=== PATIENT | male | born 1970 | race American Indian/Alaskan Native ===

== ENCOUNTER 2017-08-30 11:50 | Emergency (ER) | payer SELFPAY ==
[2017-08-30 11:59] VITALS: BP 126/85
--- NOTE | 2017-08-30 16:28 | Emergency Department Report ---
ED Extremity Problem HPI - General Chief complaint: Extremity Injury, Lower Stated complaint: FLUID/PAIN IN KNEE Time Seen by Provider: 08/30/17 15:12 Source: patient, family Mode of arrival: Ambulatory Limitations: No Limitations - History of Present Illness Initial comments: Patient reports that he has right knee pain that started this morning with some swelling. He denies any injury. Patient reports that he played sports for a very long time and he denies this is the cause. He reports pain is worse to the back of his knee. Patient reports his diabetic and the sugar in triage is 136. Pain is 10 out of 10 in a can. No kfep-[id number]-[id number] medication taken for pain. Denies any shortness of breath or chest pain. Denies any long distance travel by car or airplane recently. Denies any recent surgery or any history of cancer or current cancer. Denies any fever or chills. Denies any redness or swelling to extremities. Pain is worse with movement better with rest MD Complaint: joint swelling, joint paint -: This morning Location: right, knee History of Same: Yes -: Yes arthralgia, No fever, No associated dyspnea, No associated chest pain Radiation: none Severity scale (0 -10): 10 Quality: aching Consistency: constant Improves with: immobilization, rest Worsens with: weight bearing, walking, exertion Associated Symptoms: arthralgias. denies: chest pain, shortness of breath, fever, myalgias, rash - Related Data Previous Rx's Medication Instructions Recorded Last Taken Type traMADol [Ultram] 50 mg PO Q6HR PRN 5 Days #20 tablet 08/30/17 Unknown Rx Allergies Allergy/AdvReac Type Severity Reaction Status Date / Time No Known Allergies Allergy Unverified 08/30/17 11:58 ED Review of Systems ROS: Stated complaint: FLUID/PAIN IN KNEE Other details as noted in HPI Comment: All other systems reviewed and negative Constitutional: no symptoms reported Eyes: denies: eye pain, eye discharge ENT: denies: throat pain, congestion Respiratory: no symptoms reported Cardiovascular: denies: chest pain, palpitations, dyspnea on exertion, orthopnea , edema, syncope, paroxysmal nocturnal dyspnea Gastrointestinal: denies: abdominal pain, nausea, vomiting, diarrhea, constipation, hematemesis, melena, hematochezia Musculoskeletal: joint swelling, arthralgia. denies: back pain, myalgia Skin: denies: rash Neurological: denies: headache, weakness, numbness, paresthesias, confusion, abnormal gait, vertigo ED Past Medical Hx - Past Medical History Previous Medical History?: Yes Hx Diabetes: Yes - Surgical History Past Surgical History?: No - Family History Family history: hypertension - Social History Smoking Status: Current Every Day Smoker Substance Use Type: None - Medications Home Medications: Home Medications Medication Instructions Recorded Confirmed Last Taken Type traMADol [Ultram] 50 mg PO Q6HR PRN 5 Days #20 tablet 08/30/17 Unknown Rx ED Physical Exam - General Limitations: No Limitations General appearance: alert, in no apparent distress - Head Head exam: Present: atraumatic, normocephalic, normal inspection - Eye Eye exam: Present: normal appearance, PERRL, EOMI. Absent: periorbital swelling , periorbital tenderness Pupils: Present: normal accommodation - ENT ENT exam: Present: normal exam, normal orophraynx, mucous membranes moist - Neck Neck exam: Present: normal inspection, full ROM, other (no C-spine tenderness). Absent: tenderness, meningismus, lymphadenopathy, thyromegaly - Respiratory Respiratory exam: Present: normal lung sounds bilaterally. Absent: respiratory distress, wheezes, rales, rhonchi, stridor, chest wall tenderness, accessory muscle use, decreased breath sounds, prolonged expiratory - Cardiovascular Cardiovascular Exam: Present: regular rate, normal rhythm, normal heart sounds. Absent: systolic murmur, diastolic murmur - GI/Abdominal GI/Abdominal exam: Present: soft, normal bowel sounds. Absent: distended, tenderness, guarding, rebound, rigid, organomegaly, mass, bruit, pulsatile mass , hernia - Extremities Exam Extremities exam: Present: full ROM, tenderness (tended to palpate to posterior knee), normal capillary refill, joint swelling (mild swelling in her lateral anterior right knee). Absent: normal inspection, pedal edema, calf tenderness, other - Expanded Lower Extremity Exam Right Hip exam: Present: normal inspection, full ROM, pelvic stability. Absent: tenderness, swelling, abrasion, laceration, ecchymosis, deformity, crepidus, dislocation, erythema, external rotation, internal rotation, shortening Upper Leg exam: Present: normal inspection, full ROM. Absent: tenderness, swelling, abrasion, laceration, ecchymosis, deformity, crepidus, dislocation, erythema Knee exam: Present: full ROM (patient with full range of motion to right knee but he reports painful with flexion and minimal pain with extension), tenderness (posterior knee), swelling (mild swelling to right lateral in any), full knee extension. Absent: normal inspection, abrasion, laceration, ecchymosis, deformity, crepidus, dislocation, erythema, effusion, pain w/ pronation/supination, posterior draw sign, pain/laxity with valgus, pain/laxity with varus Lower Leg exam: Present: normal inspection, full ROM. Absent: tenderness, swelling, abrasion, laceration, ecchymosis, deformity, crepidus, dislocation, erythema, palpable cord, Xiomy's sign Ankle exam: Present: normal inspection, full ROM. Absent: tenderness, swelling , abrasion, laceration, ecchymosis, deformity, crepidus, dislocation, erythema Foot/Toe exam: Present: normal inspection, full ROM. Absent: tenderness, swelling, abrasion, laceration, ecchymosis, deformity, crepidus, dislocation, erythema, amputation, puncture wound, foreign body, calcaneal tenderness, tenderness at base of 5th metatarsal, nail avulsion, subungual hematoma Neuro vascular tendon exam: Present: no vascular compromise. Absent: pulse deficit, abnormal cap refill, motor deficit, sensory deficit, tendon deficit, extremity cold to touch, pallor, abnormal 2-point discrimination, decreased fine /light touch, foot drop, peroneal nerve deficit, significant pain with passive ROM of distal joint Gait: Positive: observed and limited by pain - Back Exam Back exam: Present: normal inspection, full ROM, other (patient ambulates with limp but he is able to ambulate.). Absent: tenderness, CVA tenderness (R), CVA tenderness (L), muscle spasm, paraspinal tenderness, vertebral tenderness, rash noted - Neurological Exam Neurological exam: Present: alert, oriented X3, normal gait, reflexes normal. Absent: motor sensory deficit - Psychiatric Psychiatric exam: Present: normal affect, normal mood - Skin Skin exam: Present: warm, dry, intact, normal color. Absent: rash ED Course Vital Signs 08/30/17 08/30/17 11:53 16:44 Temperature 98.6 F Pulse Rate 93 H 84 Respiratory 18 Rate Blood Pressure 126/85 O2 Sat by Pulse 95 Oximetry - Reevaluation(s) Reevaluation #1: 08/30/17 16:41 Benji wrap applied to the right knee and patient given Ultram 50 mg when necessary emergency room for pain. - Orthopedic Splinting/Casting Injury #1 Side: right Lower Extremity Injury Location: knee Lower Extremity Immobilizer: Benji wrap ED Medical Decision Making - Radiology Data Radiology results: report reviewed VASCULAR LAB.PRELIMINARY REPORT.RLE VENOUS DUPLEX DONE. NO EVIDENCE OF DVT/SVT IN VESSELS VISUALIZED.SOFT TISSUE CHANGES SEEN IN THE RT.KNEE. - Medical Decision Making ED course: In here complaining of right knee pain upon wakening this morning. He reports some swelling to his knee. He's had similar incident along time ago and said he plays a lot of sports for a long time when he was younger. Physical findings for tenderness to palpate to posterior knee popliteal space and mild swelling in her lateral right knee. Doppler ultrasound of right lower extremity ruled out DVT or SVT. There was mention of soft tissue swelling. I discussed patient that there are no need for me to do x-ray because he is able to flex and extend his knee and there is minimal swelling and his ultrasound of right lower extremity revealed no DVT or SVT. I discussed that he will need to follow up with orthopedic doctor for further evaluation and treatment of right knee pain. I discussed with him that ultrasound only shows bilateral bone any might have ligament injury. Patient discharged home with his family with prescription for Ultram and follow up with Dr. Deleon in 2 days. Patient given Ultram 50 mg when necessary emergency room for pain which helped his pain. Vital signs are stable he's afebrile. Critical care attestation.: If time is entered above; I have spent that time in minutes in the direct care of this critically ill patient, excluding procedure time. ED Disposition Clinical Impression: Arthralgia of right knee, Localized soft tissue swelling Disposition: DC-01 TO HOME OR SELFCARE Is pt being admited?: No Does the pt Need Aspirin: No Condition: Stable Instructions: Arthralgia (ED), Knee Pain (ED), Knee Exercises (GEN), RICE Therapy (ED) Additional Instructions: Your ultrasound results came back with negative results for blood clots Please take medication as prescribed for pain but please do not drive or operate heavy machinery while taking this medication Rest affected area 72 hours and keep Benji wrap on to site. scheduled an appointment to see Dr. Deleon who is orthopedic doctor in 2 days. If you develop any worsening knee pain, fever and redness in the please return to the emergency room [facility] Prescriptions: traMADol [Ultram] 50 mg PO Q6HR PRN 5 Days #20 tablet PRN Reason: Pain Referrals: [facility] [Outside] - 09/01/17 GENI DELEON MD [Staff Physician] - 09/01/17 Forms: Work/School Release Form(ED), Accompanied Note
[2017-08-30] MEDS ORDERED: ULTRAM PO ONE (16:34)
--- NOTE | 2017-08-31 10:53 | Vascular Lab Report ---
Right Lower Extremity Venous Duplex Study: Reason for Exam: Pain and swelling of the right lower extremity. Comments on the Right: All veins visualized are freely compressible without evidence of internal echogenicity. Flow is spontaneous and phasic throughout. No evidence of acute or chronic thrombus is seen in any of the vessels visualized. There are soft tissue change in the right knee area most compatible with an effusion or Emerson's cyst. Comments on the Left: A limited duplex study was done of the proximal veins of the left lower extremity. All veins visualized are freely compressible without evidence of internal echogenicity. Flow is spontaneous and phasic throughout. No evidence of acute or chronic thrombus is seen in any of the vessels visualized. Impression: No evidence of acute or chronic deep venous thrombosis in the right lower extremity.
== END 2017-08-30 17:06 | disposition home or self-care (01) ==
LOC: ED 11:50
DX: M25.561 Pain in right knee (principal); F17.200 Nicotine dependence, unspecified, uncomplicated; E11.9 Type 2 diabetes mellitus without complications
CPT/HCPCS: 99283

== ENCOUNTER 2017-12-21 11:11 | Emergency (ER) | payer SELFPAY ==
[2017-12-21] MEDS ORDERED: NITROSTAT SL ONE (11:49)
[2017-12-21] MEDS ORDERED: ASPIRIN PO ONE (11:49)
[2017-12-21] MEDS ORDERED: ZOFRAN ONE (11:53)
--- NOTE | 2017-12-21 11:53 | Emergency Department Report ---
Blank Doc - Documentation Documentation: Patient is a 47-year-old [place] male with a past medical history of diabetes and hypertension who is coming planning of chest pain. Patient states this is a burning sensation with radiation and numbness to the left upper extremity. Patient states is mild shortness of breath with there is no pleuritic component. Patient states he just ran arrive to work when this began. Patient states it was initially 8 out of 10 and is now 6 out of 10 in severity. Patient has not had a cardiac workup in the past. EKG shows inverted T waves in the lateral leads Patient will be moved to the main area of the ED for complete cardiac workup.
[2017-12-21] MEDS ORDERED: ZOFRAN IV ONE ×2 (12:15→13:10)
[2017-12-21 12:37] LABS: Basophils # (Auto) 0.1 K/mm3 (0.0-0.1); Basophils % (Auto) 0.8 % (0.0-1.8); Eosinophils # (Auto) 0.1 K/mm3 (0.0-0.4); Eosinophils % (Auto) 0.8 % (0.0-4.3); Hematocrit 42.6 % (35.5-45.6); Lymphocytes # (Auto) 2.2 K/mm3 (1.2-5.4); Lymphocytes % (Auto) 28.3 % (13.4-35.0); Mean Corpuscular HGB Conc 33 % (32-34); Mean Corpuscular Hemoglobin 30 pg (28-32); Mean Corpuscular Volume 91 fl (84-94); Monocytes # (Auto) 0.3 K/mm3 (0.0-0.8); Monocytes % (Auto) 4.2 % (0.0-7.3); Platelet Count 188 K/mm3 (140-440); Red Blood Count 4.67 M/mm3 (3.65-5.03); Red Cell Distribution Width 13.9 % (13.2-15.2)
[2017-12-21 12:47] LABS: INR 0.84 (0.87-1.13)
[2017-12-21 12:48] LABS: Partial Thromboplastin Time 29.2 Sec. (24.2-36.6)
--- NOTE | 2017-12-21 12:53 | XRay Report ---
Chest 2 views: History: Chest pain. Findings: Normal cardiomediastinal silhouette. Trachea is midline. No consolidation, pneumothorax or pleural effusion. Impression: No acute cardiopulmonary findings.
[2017-12-21 12:57] LABS: Alanine Aminotransferase 31 units/L (7-56); Albumin 4.1 g/dL (3.9-5); BUN/Creatinine Ratio 32; Blood Urea Nitrogen 19 mg/dL (9-20); Calcium 8.8 mg/dL (8.4-10.2); Hemolysis Index 6; Lipase 38 units/L (13-60)
[2017-12-21] MEDS ORDERED: MORPHINE IV ONE (13:10)
--- NOTE | 2017-12-21 13:15 | Emergency Department Report ---
HPI - General Chief Complaint: Chest Pain Time Seen by Provider: 12/21/17 11:36 - HPI HPI: Room 5 The patient is a 47-year-old male presented with a chief complaint of chest pain. The patient states this morning 10:00 while he was cleaning the bathroom he developed a constant burning/tightness to the substernal chest region in addition to numbness of the left upper extremity. Patient states she had an episode of vomiting. Patient denies shortness of breath or diaphoresis. The patient admits to occasional cocaine use and states he last used 2 days ago. The patient currently gets this pain is score of 6/10. Patient states he never had a stress test or cardiac catheterization Location: Chest, see above Duration: Constant since 10:00 Quality: Tightness/Burning Severity: 6/10 Modifying factors: [see above] Context: [see above] Mode of transportation: [not driving] ED Past Medical Hx - Past Medical History Hx Diabetes: Yes Additional medical history: "Irregular heartbeat" - Surgical History Past Surgical History?: No Additional Surgical History: Sternal repair - Family History Family history: no significant - Social History Smoking Status: Current Every Day Smoker (1 pack per day) Substance Use Type: Alcohol (occasional), Cocaine (last used 2 days ago) - Medications Home Medications: Home Medications Medication Instructions Recorded Confirmed Last Taken Type traMADol [Ultram] 50 mg PO Q6HR PRN 5 Days #20 tablet 08/30/17 Unknown Rx ED Review of Systems ROS: Stated complaint: C/P Other details as noted in HPI Constitutional: denies: diaphoresis Respiratory: denies: shortness of breath Cardiovascular: chest pain Gastrointestinal: nausea, vomiting Neurological: numbness Physical Exam - Physical Exam Vital Signs: Vital Signs 12/21/17 12/21/17 11:17 12:16 Temperature 98.6 F Pulse Rate 85 85 Respiratory 16 Rate Blood Pressure 137/95 137/95 O2 Sat by Pulse 97 Oximetry Physical Exam: GENERAL: The patient is well-developed well-nourished male lying on stretcher not appear to be in acute distress. [] HEENT: Normocephalic. Atraumatic. Extraocular motions are intact. Patient has moist mucous membranes. NECK: Supple. Trachea midline CHEST/LUNGS: Clear to auscultation. There is no respiratory distress noted. HEART/CARDIOVASCULAR: Regular. There is no tachycardia. There is no gallop rub or murmur. ABDOMEN: Abdomen is soft, nontender. Patient has normal bowel sounds. There is no abdominal distention. SKIN: There is no rash. There is no edema. There is no diaphoresis. NEURO: The patient is awake, alert, and oriented. The patient is cooperative. The patient has normal speech MUSCULOSKELETAL: There is no evidence of acute injury. ED Course Vital Signs 12/21/17 12/21/17 11:17 12:16 Temperature 98.6 F Pulse Rate 85 85 Respiratory 16 Rate Blood Pressure 137/95 137/95 O2 Sat by Pulse 97 Oximetry ED Medical Decision Making - Lab Data Result diagrams: 12/21/17 12:17 12/21/17 12:17 Laboratory Tests 12/21/17 12/21/17 12/21/17 12:17 12:17 12:17 WBC 7.6 RBC 4.67 Hgb 14.0 Hct 42.6 MCV 91 MCH 30 MCHC 33 RDW 13.9 Plt Count 188 Lymph % (Auto) 28.3 [place] % (Auto) 4.2 Eos % (Auto) 0.8 Baso % (Auto) 0.8 Lymph # 2.2 [place] # 0.3 Eos # 0.1 Baso # 0.1 Seg Neutrophils % 65.9 Seg Neutrophils # 5.0 PT 11.9 L INR 0.84 L APTT 29.2 Sodium 138 Potassium 3.9 Chloride 100.5 Carbon Dioxide 23 Anion Gap 18 BUN 19 Creatinine 0.6 L Estimated GFR > 60 BUN/Creatinine Ratio 32 Glucose 251 H Calcium 8.8 Total Bilirubin 0.90 AST 19 ALT 31 Alkaline Phosphatase 57 Troponin T < 0.010 Total Protein 6.8 Albumin 4.1 Albumin/Globulin Ratio 1.5 Lipase 38 - EKG Data -: EKG Interpreted by Me EKG shows normal: sinus rhythm Rate: normal - EKG Data When compared to previous EKG there are: previous EKG unavailable Interpretation: nonspecific ST-T wave andres (T-wave inversion in leads 2, 3, aVF, V4, V5, V6) - Radiology Data Radiology results: image reviewed (chest x-ray) interpreted by me: Chest x-ray- no focal infiltrates, no pneumothorax - Differential Diagnosis ACS, GERD, pericarditis Critical care attestation.: If time is entered above; I have spent that time in minutes in the direct care of this critically ill patient, excluding procedure time. ED Disposition Clinical Impression: Chest pain, T wave inversion in EKG Disposition: DC-09 OP ADMIT IP TO THIS HOSP Is pt being admited?: Yes Does the pt Need Aspirin: Yes Condition: Fair Instructions: Chest Pain (ED) Referrals: PRIMARY CARE,MD [Primary Care Provider] - 3-5 Days Time of Disposition: 13:17 (hospitalist notified (Dr Hatch))
--- NOTE | 2017-12-21 13:32 | History and Physical Report ---
Medications and Allergies Allergies Allergy/AdvReac Type Severity Reaction Status Date / Time No Known Allergies Allergy Verified 12/21/17 11:55 Home Medications Medication Instructions Recorded Confirmed Last Taken Type Insulin Aspart [NovoLOG Flexpen] 10 units SQ AC 12/21/17 12/21/17 1 Week Ago History ~12/14/17 Metformin HCl [Glucophage] 1,000 mg PO BID 12/21/17 12/21/17 1 Week Ago History ~12/14/17 glyBURIDE [Glyburide] 5 mg PO DAILY 12/21/17 12/21/17 1 Week Ago History ~12/14/17 Exam - Constitutional Vitals: Temp Pulse Resp BP Pulse Ox 98.6 F 85 16 137/95 97 12/21/17 11:17 12/21/17 12:16 12/21/17 11:17 12/21/17 12:16 12/21/17 11:17 Results - Labs CBC & Chem 7: 12/21/17 12:17 12/21/17 12:17 Labs: Abnormal lab results 12/21/17 12/21/17 Range/Units 12:17 12:17 PT 11.9 L (12.2-14.9) Sec. INR 0.84 L (0.87-1.13) Creatinine 0.6 L (0.8-1.5) mg/dL Glucose 251 H (75-100) mg/dL
[2017-12-21 14:13] VITALS: BP 120/83
[2017-12-21] MEDS ORDERED: NON-FORMULARY (Insulin Aspart [Novolog Flexpen] 10 UNITS) SQ SCH (16:30)
[2017-12-21] MEDS ORDERED: NON-FORMULARY (Metformin Hcl [Glucophage] 1,000 MG) PO SCH (22:00)
[2017-12-22] MEDS ORDERED: DIABETA PO SCH (10:00)
== END 2017-12-21 16:16 | disposition admitted as inpatient to this hospital (09) ==
LOC: ED 11:11
DX: R07.89 Other chest pain (principal); F17.200 Nicotine dependence, unspecified, uncomplicated; F14.10 Cocaine abuse, uncomplicated; E11.9 Type 2 diabetes mellitus without complications
CPT/HCPCS: 36415; 71046; 80053; 82962; 83690; 84484; 85025; 85379; 85610; 85730; 93005; 93010; 96374; 96375; 96376; 99285; J2270; J2405

== ENCOUNTER 2018-03-06 07:02 | Emergency (ER) | payer OTHER ==
[2018-03-06] MEDS ORDERED: ASPIRIN PO ONE (07:10)
[2018-03-06 08:01] LABS: Basophils # (Auto) 0.1 K/mm3 (0.0-0.1); Basophils % (Auto) 0.9 % (0.0-1.8); Eosinophils % (Auto) 0.2 % (0.0-4.3); Hematocrit 44.3 % (35.5-45.6); Hemoglobin 14.7 gm/dl (11.8-15.2); Lymphocytes # (Auto) 3.6 K/mm3 (1.2-5.4); Lymphocytes % (Auto) 35.8 % (13.4-35.0); Mean Corpuscular HGB Conc 33 % (32-34); Mean Corpuscular Hemoglobin 31 pg (28-32); Mean Corpuscular Volume 92 fl (84-94); Monocytes # (Auto) 0.8 K/mm3 (0.0-0.8); Platelet Count 166 K/mm3 (140-440); Red Blood Count 4.83 M/mm3 (3.65-5.03); Red Cell Distribution Width 14.2 % (13.2-15.2)
[2018-03-06 09:45] LABS: BUN/Creatinine Ratio 18; Blood Urea Nitrogen 16 mg/dL (9-20); Hemolysis Index 15
[2018-03-06] MEDS ORDERED: ZOFRAN IV ONE (13:38)
[2018-03-06] MEDS ORDERED: TYLENOL PO ONE (13:38)
[2018-03-06] MEDS ORDERED: ATIVAN IV ONE (13:38)
[2018-03-06] MEDS ORDERED: NACL 0.9% 1000 ML 2,000 ML IV ONE (13:38)
[2018-03-06 14:19] LABS: INR 1.23 (0.87-1.13)
--- NOTE | 2018-03-06 14:23 | XRay Report ---
ROUTINE CHEST, TWO VIEWS: HISTORY: chest pain. The trachea, heart, mediastinal contour, lung contrears and bony thorax are unremarkable. IMPRESSION: Unremarkable chest x-ray.
[2018-03-06 14:55] LABS: Bilirubin,Urine NEG (Negative); Blood,Urine NEG (Negative); Color,Urine Yellow (Yellow); Protein,Urine <15 mg/dL mg/dL (Negative)
[2018-03-06 15:07] LABS: Amphetamine Screen,Urine PRESUMPTIVE NEGATIVE; Benzodiazepines Screen,Urine PRESUMPTIVE NEGATIVE; Methadone Screen,Urine PRESUMPTIVE NEGATIVE; Opiate Screen,Urine PRESUMPTIVE NEGATIVE
[2018-03-06 15:21] VITALS: BP 115/84
[2018-03-06 15:21] LABS: Cannabinoid Screen,Urine PRESUMPTIVE POSITIVE; Cocaine Screen,Urine PRESUMPTIVE POSITIVE
--- NOTE | 2018-03-06 15:24 | Emergency Department Report ---
ED General Adult HPI - General Chief complaint: Chest Pain Stated complaint: CHEST PAIN/SOB Time Seen by Provider: 03/06/18 13:30 Source: patient, RN notes reviewed, old records reviewed Mode of arrival: Ambulatory Limitations: No Limitations - History of Present Illness Initial comments: This is a 47-year-old male who is unknown to this provider previously, has a past medical history of cocaine abuse. Patient presents to the ER with a complaint of supraumbilical pain that radiates up to his subxiphoid region for the past 2 days. The pain is described as aching, burning and sharp. He describes 2 episodes of nausea, no active vomiting, a few episodes of nonbloody diarrhea, indicates that his testicles feel "funny", and he denies irritative obstructive urinary symptoms. He reports a recent cocaine binge for the past 72 hours. His epigastric pain has been present for over 2 days. He denies DVT , pulmonary embolus risk factors, reports that he feels quite anxious, and was recently evaluated at this hospital in December for similar complaints, had multiple negative troponins and a negative d-dimer. -: Gradual Location: abdomen Radiation: abdomen, other (subxiphoid) Severity scale (0 -10): 5 Quality: burning, aching Consistency: constant Improves with: none Worsens with: none Associated Symptoms: chest pain, loss of appetite, malaise, nausea/vomiting, shortness of breath, weakness. denies: confusion, cough, diaphoresis, fever/ chills, headaches, rash, seizure, syncope - Related Data Home Medications Medication Instructions Recorded Confirmed Last Taken Insulin Aspart [NovoLOG Flexpen] 10 units SQ AC 12/21/17 03/06/18 1 Week Ago ~12/14/17 Metformin HCl [Glucophage] 1,000 mg PO BID 12/21/17 03/06/18 1 Week Ago ~12/14/17 glyBURIDE [Glyburide] 5 mg PO DAILY 12/21/17 03/06/18 1 Week Ago ~12/14/17 Previous Rx's Medication Instructions Recorded Last Taken Type Acetaminophen [Tylenol Arthritis] 650 mg PO Q6HR PRN #30 tablet.er 03/06/18 Unknown Rx Aspirin [Aspirin BABY CHEW TAB] 81 mg PO QDAY #30 tab.chew 03/06/18 Unknown Rx Famotidine [Pepcid] 20 mg PO QDAY #30 tablet 03/06/18 Unknown Rx Ondansetron [Zofran Odt] 4 mg PO Q8HR PRN #20 tab.rapdis 03/06/18 Unknown Rx Allergies Allergy/AdvReac Type Severity Reaction Status Date / Time No Known Allergies Allergy Verified 03/06/18 07:08 ED Review of Systems ROS: Stated complaint: CHEST PAIN/SOB Other details as noted in HPI Constitutional: malaise Eyes: denies: vision change Respiratory: shortness of breath Cardiovascular: chest pain Gastrointestinal: abdominal pain, diarrhea Genitourinary: denies: urgency, dysuria, testicular pain Musculoskeletal: arthralgia Skin: denies: lesions Neurological: weakness Psychiatric: anxiety ED Past Medical Hx - Past Medical History Hx Diabetes: Yes Additional medical history: "Irregular heartbeat" - Surgical History Additional Surgical History: Sternal repair - Social History Smoking Status: Current Every Day Smoker Substance Use Type: Alcohol, Cocaine - Medications Home Medications: Home Medications Medication Instructions Recorded Confirmed Last Taken Type Insulin Aspart [NovoLOG Flexpen] 10 units SQ AC 12/21/17 03/06/18 1 Week Ago History ~12/14/17 Metformin HCl [Glucophage] 1,000 mg PO BID 12/21/17 03/06/18 1 Week Ago History ~12/14/17 glyBURIDE [Glyburide] 5 mg PO DAILY 12/21/17 03/06/18 1 Week Ago History ~12/14/17 Acetaminophen [Tylenol Arthritis] 650 mg PO Q6HR PRN #30 tablet.er 03/06/18 Unknown Rx Aspirin [Aspirin BABY CHEW TAB] 81 mg PO QDAY #30 tab.chew 03/06/18 Unknown Rx Famotidine [Pepcid] 20 mg PO QDAY #30 tablet 03/06/18 Unknown Rx Ondansetron [Zofran Odt] 4 mg PO Q8HR PRN #20 tab.rapdis 03/06/18 Unknown Rx ED Physical Exam - General Limitations: No Limitations General appearance: alert, in no apparent distress - Head Head exam: Present: atraumatic, normocephalic - Eye Eye exam: Present: normal appearance, EOMI. Absent: nystagmus - ENT ENT exam: Present: normal exam, normal orophraynx, mucous membranes moist, normal external ear exam - Neck Neck exam: Present: normal inspection, full ROM - Respiratory Respiratory exam: Present: normal lung sounds bilaterally. Absent: respiratory distress - Cardiovascular Cardiovascular Exam: Present: normal rhythm, tachycardia, normal heart sounds. Absent: systolic murmur, diastolic murmur, rubs, gallop - GI/Abdominal GI/Abdominal exam: Present: soft, normal bowel sounds. Absent: distended, tenderness, guarding, rebound, rigid, pulsatile mass - Rectal Rectal exam: Present: deferred - exam: Present: normal inspection. Absent: testicular tenderness External exam: Present: normal external exam, other (there is no testicular tenderness. There is normal testicular lie bilaterally. There is normal cremasteric reflex bilaterally.) - Extremities Exam Extremities exam: Present: normal inspection (2+ pulses noted in the bilateral upper, lower extremities. Compartments soft. No long bony tenderness. The pelvis is stable.), full ROM, normal capillary refill, other (there is no palpable cord. There is a negative Homans sign.). Absent: pedal edema, joint swelling, calf tenderness - Back Exam Back exam: Present: normal inspection, full ROM. Absent: tenderness, CVA tenderness (R), paraspinal tenderness, vertebral tenderness - Neurological Exam Neurological exam: Present: alert, oriented X3, CN II-XII intact, normal gait, other (Extraocular movements intact. Tongue midline. No facial droop. Facial sensation intact to light touch in the V1, V2, V3 distribution bilaterally. 5 and 5 strength in 4 extremities.. Sensation is intact to light touch in 4 extremities.). Absent: motor sensory deficit - Psychiatric Psychiatric exam: Present: anxious - Skin Skin exam: Present: warm, dry, intact, normal color. Absent: rash ED Course Vital Signs 03/06/18 03/06/18 03/06/18 07:08 13:55 15:15 Temperature 98.1 F Pulse Rate 120 H 104 H 102 H Respiratory 18 16 16 Rate Blood Pressure 122/90 Blood Pressure 112/86 115/84 [Left] O2 Sat by Pulse 98 96 98 Oximetry - Reevaluation(s) Reevaluation #1: 03/06/18 15:23 Differential diagnosis, including but not limited to: Cocaine abuse, colitis, enteritis, GERD, gastritis, pneumonia, acute coronary syndrome, cocaine washout Assessment and plan: 47-year-old male status post recent cocaine binge with 48 hours of suprapubic abdominal pain that radiates to the epigastric region. Troponin negative 3, EKG unchanged 2 and unchanged from prior EKG from 2018. Recently had a negative d-dimer, and endorses no pulmonary embolus or DVT risk factors. He is treated supportively and symptomatically with IV fluids, nonnarcotic medication and Ativan. On my initial assessment the patient is sleeping comfortably in the stretcher and in no distress. After aforementioned therapy, patient is still sleeping heavily on a stretcher, and in no distress. Patient is low risk by NICOLE score, low risk by heart score, low risk by well's criteria, and based on the objective data is medically suitable to follow up with outpatient cardiology to complete the cardiac risk stratification. He was instructed to discontinue cocaine consumption. Reevaluation #2: 03/06/18 15:[address] a/p with non specific stranding along gerotas fascia. belly soft. ua, lipase within normal limits. patient can follow up with a pmd for this incidental finding ED Medical Decision Making - Lab Data Result diagrams: 03/06/18 07:27 03/06/18 07:20 Vital Signs 03/06/18 03/06/18 03/06/18 07:08 13:55 15:15 Temperature 98.1 F Pulse Rate 120 H 104 H 102 H Respiratory 18 16 16 Rate Blood Pressure 122/90 Blood Pressure 112/86 115/84 [Left] O2 Sat by Pulse 98 96 98 Oximetry Lab Results 03/06/18 03/06/18 03/06/18 Range/Units 07:20 07:27 10:21 WBC 10.2 (4.5-11.0) K/mm3 RBC 4.83 (3.65-5.03) M/mm3 Hgb 14.7 (11.8-15.2) gm/dl Hct 44.3 (35.5-45.6) % MCV 92 (84-94) fl MCH 31 (28-32) pg MCHC 33 (32-34) % RDW 14.2 (13.2-15.2) % Plt Count 166 (140-440) K/mm3 Lymph % (Auto) 35.8 H (13.4-35.0) % [place] % (Auto) 8.0 H (0.0-7.3) % Eos % (Auto) 0.2 (0.0-4.3) % Baso % (Auto) 0.9 (0.0-1.8) % Lymph # 3.6 (1.2-5.4) K/mm3 [place] # 0.8 (0.0-0.8) K/mm3 Eos # 0.0 (0.0-0.4) K/mm3 Baso # 0.1 (0.0-0.1) K/mm3 Seg Neutrophils % 55.1 (40.0-70.0) % Seg Neutrophils # 5.6 (1.8-7.7) K/mm3 PT (12.2-14.9) Sec. INR (0.87-1.13) Sodium 135 L (137-145) mmol/L Potassium 4.5 (3.6-5.0) mmol/L Chloride 98.7 (98-107) mmol/L Carbon Dioxide 20 L (22-30) mmol/L Anion Gap 21 mmol/L BUN 16 (9-20) mg/dL Creatinine 0.9 (0.8-1.5) mg/dL Estimated GFR > 60 ml/min BUN/Creatinine Ratio 18 % Glucose 124 H (75-100) mg/dL Calcium 9.0 (8.4-10.2) mg/dL Total Creatine Kinase (55-170) units/L Troponin T 0.012 0.017 (0.00-0.029) ng/mL Lipase (13-60) units/L Urine Color (Yellow) Urine Turbidity (Clear) Urine pH (5.0-7.0) Ur Specific [place] (1.003-1.030) Urine Protein (Negative) mg/dL Urine Glucose (UA) (Negative) mg/dL Urine Ketones (Negative) mg/dL Urine Blood (Negative) Urine Nitrite (Negative) Urine Bilirubin (Negative) Urine Urobilinogen (<2.0) mg/dL Ur Leukocyte Esterase (Negative) Urine WBC (Auto) (0.0-6.0) /HPF Urine RBC (Auto) (0.0-6.0) /HPF U Epithel Cells (Auto) (0-13.0) /HPF Salicylates (2.8-20.0) mg/dL Urine Opiates Screen Urine Methadone Screen Acetaminophen (10.0-30.0) ug/mL Ur Barbiturates Screen Ur Phencyclidine Scrn Ur Amphetamines Screen U Benzodiazepines Scrn Urine Cocaine Screen U Marijuana (THC) Screen 03/06/18 03/06/18 03/06/18 Range/Units 13:47 13:52 13:52 WBC (4.5-11.0) K/mm3 RBC (3.65-5.03) M/mm3 Hgb (11.8-15.2) gm/dl Hct (35.5-45.6) % MCV (84-94) fl MCH (28-32) pg MCHC (32-34) % RDW (13.2-15.2) % Plt Count (140-440) K/mm3 Lymph % (Auto) (13.4-35.0) % [place] % (Auto) (0.0-7.3) % Eos % (Auto) (0.0-4.3) % Baso % (Auto) (0.0-1.8) % Lymph # (1.2-5.4) K/mm3 [place] # (0.0-0.8) K/mm3 Eos # (0.0-0.4) K/mm3 Baso # (0.0-0.1) K/mm3 Seg Neutrophils % (40.0-70.0) % Seg Neutrophils # (1.8-7.7) K/mm3 PT 16.2 H (12.2-14.9) Sec. INR 1.23 H (0.87-1.13) Sodium (137-145) mmol/L Potassium (3.6-5.0) mmol/L Chloride (98-107) mmol/L Carbon Dioxide (22-30) mmol/L Anion Gap mmol/L BUN (9-20) mg/dL Creatinine (0.8-1.5) mg/dL Estimated GFR ml/min BUN/Creatinine Ratio % Glucose (75-100) mg/dL Calcium (8.4-10.2) mg/dL Total Creatine Kinase 311 H (55-170) units/L Troponin T < 0.010 (0.00-0.029) ng/mL Lipase (13-60) units/L Urine Color (Yellow) Urine Turbidity (Clear) Urine pH (5.0-7.0) Ur Specific [place] (1.003-1.030) Urine Protein (Negative) mg/dL Urine Glucose (UA) (Negative) mg/dL Urine Ketones (Negative) mg/dL Urine Blood (Negative) Urine Nitrite (Negative) Urine Bilirubin (Negative) Urine Urobilinogen (<2.0) mg/dL Ur Leukocyte Esterase (Negative) Urine WBC (Auto) (0.0-6.0) /HPF Urine RBC (Auto) (0.0-6.0) /HPF U Epithel Cells (Auto) (0-13.0) /HPF Salicylates (2.8-20.0) mg/dL Urine Opiates Screen Urine Methadone Screen Acetaminophen (10.0-30.0) ug/mL Ur Barbiturates Screen Ur Phencyclidine Scrn Ur Amphetamines Screen U Benzodiazepines Scrn Urine Cocaine Screen U Marijuana (THC) Screen 03/06/18 03/06/18 03/06/18 Range/Units 13:52 13:52 13:52 WBC (4.5-11.0) K/mm3 RBC (3.65-5.03) M/mm3 Hgb (11.8-15.2) gm/dl Hct (35.5-45.6) % MCV (84-94) fl MCH (28-32) pg MCHC (32-34) % RDW (13.2-15.2) % Plt Count (140-440) K/mm3 Lymph % (Auto) (13.4-35.0) % [place] % (Auto) (0.0-7.3) % Eos % (Auto) (0.0-4.3) % Baso % (Auto) (0.0-1.8) % Lymph # (1.2-5.4) K/mm3 [place] # (0.0-0.8) K/mm3 Eos # (0.0-0.4) K/mm3 Baso # (0.0-0.1) K/mm3 Seg Neutrophils % (40.0-70.0) % Seg Neutrophils # (1.8-7.7) K/mm3 PT (12.2-14.9) Sec. INR (0.87-1.13) Sodium (137-145) mmol/L Potassium (3.6-5.0) mmol/L Chloride (98-107) mmol/L Carbon Dioxide (22-30) mmol/L Anion Gap mmol/L BUN (9-20) mg/dL Creatinine (0.8-1.5) mg/dL Estimated GFR ml/min BUN/Creatinine Ratio % Glucose (75-100) mg/dL Calcium (8.4-10.2) mg/dL Total Creatine Kinase (55-170) units/L Troponin T (0.00-0.029) ng/mL Lipase 22 (13-60) units/L Urine Color (Yellow) Urine Turbidity (Clear) Urine pH (5.0-7.0) Ur Specific [place] (1.003-1.030) Urine Protein (Negative) mg/dL Urine Glucose (UA) (Negative) mg/dL Urine Ketones (Negative) mg/dL Urine Blood (Negative) Urine Nitrite (Negative) Urine Bilirubin (Negative) Urine Urobilinogen (<2.0) mg/dL Ur Leukocyte Esterase (Negative) Urine WBC (Auto) (0.0-6.0) /HPF Urine RBC (Auto) (0.0-6.0) /HPF U Epithel Cells (Auto) (0-13.0) /HPF Salicylates < 0.3 L (2.8-20.0) mg/dL Urine Opiates Screen Urine Methadone Screen Acetaminophen < 5.0 L (10.0-30.0) ug/mL Ur Barbiturates Screen Ur Phencyclidine Scrn Ur Amphetamines Screen U Benzodiazepines Scrn Urine Cocaine Screen U Marijuana (THC) Screen 03/06/18 03/06/18 Range/Units 14:19 14:19 WBC (4.5-11.0) K/mm3 RBC (3.65-5.03) M/mm3 Hgb (11.8-15.2) gm/dl Hct (35.5-45.6) % MCV (84-94) fl MCH (28-32) pg MCHC (32-34) % RDW (13.2-15.2) % Plt Count (140-440) K/mm3 Lymph % (Auto) (13.4-35.0) % [place] % (Auto) (0.0-7.3) % Eos % (Auto) (0.0-4.3) % Baso % (Auto) (0.0-1.8) % Lymph # (1.2-5.4) K/mm3 [place] # (0.0-0.8) K/mm3 Eos # (0.0-0.4) K/mm3 Baso # (0.0-0.1) K/mm3 Seg Neutrophils % (40.0-70.0) % Seg Neutrophils # (1.8-7.7) K/mm3 PT (12.2-14.9) Sec. INR (0.87-1.13) Sodium (137-145) mmol/L Potassium (3.6-5.0) mmol/L Chloride (98-107) mmol/L Carbon Dioxide (22-30) mmol/L Anion Gap mmol/L BUN (9-20) mg/dL Creatinine (0.8-1.5) mg/dL Estimated GFR ml/min BUN/Creatinine Ratio % Glucose (75-100) mg/dL Calcium (8.4-10.2) mg/dL Total Creatine Kinase (55-170) units/L Troponin T (0.00-0.029) ng/mL Lipase (13-60) units/L Urine Color Yellow (Yellow) Urine Turbidity Clear (Clear) Urine pH 6.0 (5.0-7.0) Ur Specific [place] 1.010 (1.003-1.030) Urine Protein <15 mg/dl (Negative) mg/dL Urine Glucose (UA) Neg (Negative) mg/dL Urine Ketones Neg (Negative) mg/dL Urine Blood Neg (Negative) Urine Nitrite Neg (Negative) Urine Bilirubin Neg (Negative) Urine Urobilinogen 4.0 (<2.0) mg/dL Ur Leukocyte Esterase Tr (Negative) Urine WBC (Auto) 4.0 (0.0-6.0) /HPF Urine RBC (Auto) 2.0 (0.0-6.0) /HPF U Epithel Cells (Auto) < 1.0 (0-13.0) /HPF Salicylates (2.8-20.0) mg/dL Urine Opiates Screen Presumptive negative Urine Methadone Screen Presumptive negative Acetaminophen (10.0-30.0) ug/mL Ur Barbiturates Screen Presumptive negative Ur Phencyclidine Scrn Presumptive negative Ur Amphetamines Screen Presumptive negative U Benzodiazepines Scrn Presumptive negative Urine Cocaine Screen Presumptive positive U Marijuana (THC) Screen Presumptive positive - EKG Data -: EKG Interpreted by Me - EKG Data When compared to previous EKG there are: no significant change Interpretation: unchanged when compared t 03/06/18 15:25 EKG #1 shows sinus tachycardia, left axis deviation, left anterior fascicular block, atrial enlargement, QTC prolonged, high left ventricular voltage, not a STEMI EKG #2 is unchanged. Both EKGs appeared to be unchanged from prior EKG from 12/21/2017. - Radiology Data Radiology results: report reviewed, image reviewed X-ray of the chest is negative for acute disease Critical care attestation.: If time is entered above; I have spent that time in minutes in the direct care of this critically ill patient, excluding procedure time. ED Disposition Clinical Impression: Cocaine dependence, Epigastric pain Disposition: TO HOME OR SELFCARE Is pt being admited?: No Does the pt Need Aspirin: No Condition: Good Instructions: Chest Pain (ED), Cocaine Abuse (ED) Additional Instructions: Discontinue consumption of tobacco, cocaine products. These substances are not healthy for the patient. Take the pain medication, nausea medication as needed/ directed, take the aspirin as directed, and please follow up with the primary care doctor or ripshear operator within the next 3-5 days. Return to the ER right away with new pain, worsening pain, migration of pain, fevers, chills, lethargy , irritability, projectile vomiting, change in mental status, confusion, inability to tolerate liquid feeds. ct scan showed non specific inflammatory findings, none of which require emergency surgery or antibiotics, but should be follow up by a pmd within the recommended time frame. Prescriptions: Acetaminophen [Tylenol Arthritis] 650 mg PO Q6HR PRN #30 tablet.er PRN Reason: Pain Aspirin [Aspirin BABY CHEW TAB] 81 mg PO QDAY #30 tab.chew Famotidine [Pepcid] 20 mg PO QDAY #30 tablet Ondansetron [Zofran Odt] 4 mg PO Q8HR PRN #20 tab.rapdis PRN Reason: Nausea Referrals: PRIMARY CARE,MD [Primary Care Provider] - 3-5 Days [facility] [Provider Group] - 3-5 Days [facility] [Provider Group] - 3-5 Days
--- NOTE | 2018-03-06 15:45 | Cat Scan Report ---
FINAL REPORT EXAM: CT ABDOMEN PELVIS WO CON HISTORY: abd pain TECHNIQUE: Standard unenhanced CT of the abdomen and pelvis. Coronal and sagittal reconstruction was also performed. PRIORS: None. FINDINGS: Within the abdomen, the liver, spleen, pancreas, gallbladder, adrenal glands, and kidneys are unremarkable. There is nonspecific symmetrical stranding bilaterally along Gerota's fascia of uncertain clinical significance. [place] lymph nodes in the periaortic region are noted measuring up to 8.5 mm. No evidence for pelvic lymphadenopathy is seen. The bowel loops have normal caliber. No soft tissue mass, fluid collection, or free air is seen within the abdomen or pelvis. The appendix is normal. Within the pelvis, the bladder is not optimally distended and demonstrates wall prominence, probably due to the lack of distension. The prostate is mildly enlarged. No evidence for mass or lymphadenopathy is seen in the pelvis. Images through the upper abdomen include the lung bases which demonstrates bilateral free-flowing low-density pleural effusions, moderate on the right and small on the left. Bony structures show degenerative disc narrowing through the lumbar spine, most marked at L5-S1. Spurring anteriorly from T12 through L3 is noted. IMPRESSION: 1. Nonspecific symmetrical stranding along Gerota's fascia bilaterally. Clinical significance is uncertain. Common etiologies are pancreatitis and pyelonephritis. An unlikely etiology is retroperitoneal fibrosis 2. Bilateral pleural effusions, moderate on the right and small on the left 3. Mild enlargement of the prostate gland.
== END 2018-03-06 16:07 | disposition home or self-care (01) ==
LOC: ED 07:02
DX: R10.13 Epigastric pain (principal); F14.20 Cocaine dependence, uncomplicated; F17.200 Nicotine dependence, unspecified, uncomplicated
CPT/HCPCS: 36415; 71046; 74176; 80048; 80307; 81001; 82550; 83690; 84484; 85025; 85610; 93005; 93010; 96374; 96375; 99285; G0480; J2060; J2405; J7030; 80320

== ENCOUNTER 2018-12-20 08:02 | Emergency (ER) | payer SELFPAY ==
[2018-12-20] MEDS ORDERED: LASIX IV ONE (08:31)
--- NOTE | 2018-12-20 08:34 | Emergency Department Report ---
ED Shortness of Breath HPI - General Chief Complaint: Dyspnea/Respdistress Stated Complaint: SOB Time Seen by Provider: 12/20/18 08:31 Source: patient, EMS Mode of arrival: Ambulatory Limitations: No Limitations - History of Present Illness Initial Comments: Condition is a pleasant 48-year-old male who comes to the ER with a one-day history of shortness of breath. He states that he had his appointment yesterday in the [facility], this was a follow-up appointment for his history of congestive heart failure. He was not having any problems when he went to this appointment. However, he went home and reports that his family called and he a te too much including salt last night and has been short of breath today. He also reports that he is on Lasix 40 mg twice a day on an as-needed basis for an increase in his weight. However, he forgot to get his Lasix filled yesterday so he has none to take. Patient does have his paperwork with him from [place] as well as a bag of his home medications. Patient's not complaining of chest pain. He is diabetic and his blood sugar slightly elevated. He reports that he is out of no other medications and is taking everything as instructed. He is also on Coumadin therapy for what he reports his blood clots around his heart when he was diagnosed with his heart failure. Reviewed the EMR at one time he told us he had an irregular heart rate so I'm not sure if the Coumadin is for atrial fib or if he's had a history of PE. Patient is ambulatory with an O2 sat of 99% on room air but appears dyspneic on exam. He denies chest pain. His legs are not swollen. He does have JVD on exam. Home medications include metoprolol XL 200 mg every morning, Coumadin, metformin, spironolactone, and the when necessary Lasix. Patient reports a past medical history of heart failure due to polysubstance a buse. He states that he has not drank, smoke or done any drugs in 9 months. He also has a history of hypertension and diabetes. He has a significant family history for coronary disease. [facility] care is [facility] MD Complaint: shortness of breath -: Gradual Severity: moderate Consistency: constant Improves With: medication Known History Of: congestive heart failure, diabetes Treatments Prior to Arrival: none - Related Data Home Oxygen Therapy: No Home Medications Medication Instructions Recorded Confirmed Last Taken Insulin Aspart [NovoLOG Flexpen] 10 units SQ AC 12/21/17 03/06/18 1 Week Ago ~12/14/17 Metformin HCl [Glucophage] 1,000 mg PO BID 12/21/17 03/06/18 1 Week Ago ~12/14/17 glyBURIDE [Glyburide] 5 mg PO DAILY 12/21/17 03/06/18 1 Week Ago ~12/14/17 Previous Rx's Medication Instructions Recorded Last Taken Type Aspirin [Aspirin BABY CHEW TAB] 81 mg PO QDAY #30 tab.chew 03/06/18 Unknown Rx Famotidine [Pepcid] 20 mg PO QDAY #30 tablet 03/06/18 Unknown Rx Furosemide [Lasix TAB] 40 mg PO BID PRN #60 tablet 12/20/18 Unknown Rx Allergies Allergy/AdvReac Type Severity Reaction Status Date / Time No Known Allergies Allergy Verified 12/20/18 08:03 ED Review of Systems ROS: Stated complaint: SOB Other details as noted in HPI Comment: All other systems reviewed and negative ED Past Medical Hx - Past Medical History Hx Congestive Heart Failure: Yes Hx Diabetes: Yes Additional medical history: "Irregular heartbeat", HTN, CHF FROM DRUG ABUSE, COUMADIN THERAPY FOR "CLOTS AROUND HEART", DM. FAMILY HX CAD. NO DRUGS CIG OR ETOH FOR 9MONTHS - Surgical History Additional Surgical History: Sternal repair - Family History Family history: CAD/CA - Social History Smoking Status: Former Smoker Substance Use Type: Other (CLEAN FOR 9 M) - Medications Home Medications: Home Medications Medication Instructions Recorded Confirmed Last Taken Type Insulin Aspart [NovoLOG Flexpen] 10 units SQ AC 12/21/17 03/06/18 1 Week Ago History ~12/14/17 Metformin HCl [Glucophage] 1,000 mg PO BID 12/21/17 03/06/18 1 Week Ago History ~12/14/17 glyBURIDE [Glyburide] 5 mg PO DAILY 12/21/17 03/06/18 1 Week Ago History ~12/14/17 Aspirin [Aspirin BABY CHEW TAB] 81 mg PO QDAY #30 tab.chew 03/06/18 Unknown Rx Famotidine [Pepcid] 20 mg PO QDAY #30 tablet 03/06/18 Unknown Rx Furosemide [Lasix TAB] 40 mg PO BID PRN #60 tablet 12/20/18 Unknown Rx ED Physical Exam - General Limitations: No Limitations General appearance: alert - Head Head exam: Present: normocephalic - Eye Eye exam: Present: PERRL - ENT ENT exam: Present: mucous membranes moist - Neck Neck exam: Present: other (jvd) - Respiratory Respiratory exam: Present: normal lung sounds bilaterally, rales (bilateral bases) - Cardiovascular Cardiovascular Exam: Present: regular rate, other (on beta james) - GI/Abdominal GI/Abdominal exam: Present: soft, normal bowel sounds - Rectal Rectal exam: Present: deferred - Extremities Exam Extremities exam: Present: normal inspection, full ROM, normal capillary refill. Absent: pedal edema - Back Exam Back exam: Present: normal inspection, full ROM - Neurological Exam Neurological exam: Present: alert, oriented X3, CN II-XII intact - Psychiatric Psychiatric exam: Present: normal affect, normal mood - Skin Skin exam: Present: warm, dry, intact - Other Other exam information: WDWN male VS per RN flow sheet Alert and oriented to person, place and time. S1-S2. No S3 or S4. No systolic or diastolic murmur. Abdomen soft nontender bowel sounds 4. No hepatamegaly Moves all extremities well. Mood and affect appropriate. ED Course Vital Signs 12/20/18 12/20/18 08:16 12:25 Temperature 97.8 F Pulse Rate 88 78 Respiratory 20 20 Rate Blood Pressure 136/91 Blood Pressure 132/92 [Right] O2 Sat by Pulse 99 100 Oximetry ED Medical Decision Making - Lab Data Result diagrams: 12/20/18 08:39 12/20/18 08:40 - EKG Data -: EKG Interpreted by Az EKG shows normal: sinus rhythm Rate: normal - EKG Data When compared to previous EKG there are: no significant change Interpretation: no acute changes - Radiology Data Radiology results: report reviewed, image reviewed - Medical Decision Making Vital Signs 12/20/18 08:16 Temperature 97.8 F Pulse Rate 88 Respiratory 20 Rate Blood Pressure 136/91 O2 Sat by Pulse 99 Oximetry Lab Results 12/20/18 12/20/18 12/20/18 Range/Units 08:15 08:39 08:40 WBC 6.8 (4.5-11.0) K/mm3 RBC 3.92 (3.65-5.03) M/mm3 Hgb 12.3 (11.8-15.2) gm/dl Hct 36.4 (35.5-45.6) % MCV 93 (84-94) fl MCH 31 (28-32) pg MCHC 34 (32-34) % RDW 16.5 H (13.2-15.2) % Plt Count 181 (140-440) K/mm3 Lymph % (Auto) 26.4 (13.4-35.0) % [place] % (Auto) 7.2 (0.0-7.3) % Eos % (Auto) 0.2 (0.0-4.3) % Baso % (Auto) 1.4 (0.0-1.8) % Lymph # 1.8 (1.2-5.4) K/mm3 [place] # 0.5 (0.0-0.8) K/mm3 Eos # 0.0 (0.0-0.4) K/mm3 Baso # 0.1 (0.0-0.1) K/mm3 Seg Neutrophils % 64.8 (40.0-70.0) % Seg Neutrophils # 4.4 (1.8-7.7) K/mm3 PT 30.5 H (12.2-14.9) Sec. INR 2.69 H (0.87-1.13) Sodium (137-145) mmol/L Potassium (3.6-5.0) mmol/L Chloride (98-107) mmol/L Carbon Dioxide (22-30) mmol/L Anion Gap mmol/L BUN (9-20) mg/dL Creatinine (0.8-1.5) mg/dL Estimated GFR ml/min BUN/Creatinine Ratio % Glucose (75-100) mg/dL POC Glucose 215 H (70-105) Calcium (8.4-10.2) mg/dL Total Bilirubin (0.1-1.2) mg/dL AST (5-40) units/L ALT (7-56) units/L Alkaline Phosphatase (35-129) units/L Troponin T (0.00-0.029) ng/mL NT-Pro-B Natriuret Pep (0-450) pg/mL Total Protein (6.3-8.2) g/dL Albumin (3.9-5) g/dL Albumin/Globulin Ratio % Lipase (13-60) units/L Urine Color (Yellow) Urine Turbidity (Clear) Urine pH (5.0-7.0) Ur Specific Mckenzie (1.003-1.030) Urine Protein (Negative) mg/dL Urine Glucose (UA) (Negative) mg/dL Urine Ketones (Negative) mg/dL Urine Blood (Negative) Urine Nitrite (Negative) Urine Bilirubin (Negative) Urine Urobilinogen (<2.0) mg/dL Ur Leukocyte Esterase (Negative) Urine WBC (Auto) (0.0-6.0) /HPF Urine RBC (Auto) (0.0-6.0) /HPF U Epithel Cells (Auto) (0-13.0) /HPF Hyaline Casts /LPF Urine Mucus /HPF 12/20/18 12/20/18 12/20/18 Range/Units 08:40 08:40 09:06 WBC (4.5-11.0) K/mm3 RBC (3.65-5.03) M/mm3 Hgb (11.8-15.2) gm/dl Hct (35.5-45.6) % MCV (84-94) fl MCH (28-32) pg MCHC (32-34) % RDW (13.2-15.2) % Plt Count (140-440) K/mm3 Lymph % (Auto) (13.4-35.0) % [place] % (Auto) (0.0-7.3) % Eos % (Auto) (0.0-4.3) % Baso % (Auto) (0.0-1.8) % Lymph # (1.2-5.4) K/mm3 [place] # (0.0-0.8) K/mm3 Eos # (0.0-0.4) K/mm3 Baso # (0.0-0.1) K/mm3 Seg Neutrophils % (40.0-70.0) % Seg Neutrophils # (1.8-7.7) K/mm3 PT (12.2-14.9) Sec. INR (0.87-1.13) Sodium 136 L (137-145) mmol/L Potassium 4.4 (3.6-5.0) mmol/L Chloride 99.1 (98-107) mmol/L Carbon Dioxide 21 L (22-30) mmol/L Anion Gap 20 mmol/L BUN 15 (9-20) mg/dL Creatinine 0.7 L (0.8-1.5) mg/dL Estimated GFR > 60 ml/min BUN/Creatinine Ratio 21 % Glucose 212 H (75-100) mg/dL POC Glucose (70-105) Calcium 9.3 (8.4-10.2) mg/dL Total Bilirubin 4.00 H (0.1-1.2) mg/dL AST 31 (5-40) units/L ALT 32 (7-56) units/L Alkaline Phosphatase 115 (35-129) units/L Troponin T < 0.010 (0.00-0.029) ng/mL NT-Pro-B Natriuret Pep 3252 H (0-450) pg/mL Total Protein 7.2 (6.3-8.2) g/dL Albumin 4.1 (3.9-5) g/dL Albumin/Globulin Ratio 1.3 % Lipase 37 (13-60) units/L Urine Color Yellow (Yellow) Urine Turbidity Slightly-cloudy (Clear) Urine pH 5.0 (5.0-7.0) Ur Specific Mckenzie 1.019 (1.003-1.030) Urine Protein 100 mg/dl (Negative) mg/dL Urine Glucose (UA) Neg (Negative) mg/dL Urine Ketones Neg (Negative) mg/dL Urine Blood Sm (Negative) Urine Nitrite Neg (Negative) Urine Bilirubin Neg (Negative) Urine Urobilinogen 4.0 (<2.0) mg/dL Ur Leukocyte Esterase Neg (Negative) Urine WBC (Auto) 3.0 (0.0-6.0) /HPF Urine RBC (Auto) 5.0 (0.0-6.0) /HPF U Epithel Cells (Auto) < 1.0 (0-13.0) /HPF Hyaline Casts 3 /LPF Urine Mucus Few /HPF 12/20/18 Range/Units 11:08 WBC (4.5-11.0) K/mm3 RBC (3.65-5.03) M/mm3 Hgb (11.8-15.2) gm/dl Hct (35.5-45.6) % MCV (84-94) fl MCH (28-32) pg MCHC (32-34) % RDW (13.2-15.2) % Plt Count (140-440) K/mm3 Lymph % (Auto) (13.4-35.0) % [place] % (Auto) (0.0-7.3) % Eos % (Auto) (0.0-4.3) % Baso % (Auto) (0.0-1.8) % Lymph # (1.2-5.4) K/mm3 [place] # (0.0-0.8) K/mm3 Eos # (0.0-0.4) K/mm3 Baso # (0.0-0.1) K/mm3 Seg Neutrophils % (40.0-70.0) % Seg Neutrophils # (1.8-7.7) K/mm3 PT (12.2-14.9) Sec. INR (0.87-1.13) Sodium (137-145) mmol/L Potassium (3.6-5.0) mmol/L Chloride (98-107) mmol/L Carbon Dioxide (22-30) mmol/L Anion Gap mmol/L BUN (9-20) mg/dL Creatinine (0.8-1.5) mg/dL Estimated GFR ml/min BUN/Creatinine Ratio % Glucose (75-100) mg/dL POC Glucose (70-105) Calcium (8.4-10.2) mg/dL Total Bilirubin (0.1-1.2) mg/dL AST (5-40) units/L ALT (7-56) units/L Alkaline Phosphatase (35-129) units/L Troponin T < 0.010 (0.00-0.029) ng/mL NT-Pro-B Natriuret Pep (0-450) pg/mL Total Protein (6.3-8.2) g/dL Albumin (3.9-5) g/dL Albumin/Globulin Ratio % Lipase (13-60) units/L Urine Color (Yellow) Urine Turbidity (Clear) Urine pH (5.0-7.0) Ur Specific Mckenzie (1.003-1.030) Urine Protein (Negative) mg/dL Urine Glucose (UA) (Negative) mg/dL Urine Ketones (Negative) mg/dL Urine Blood (Negative) Urine Nitrite (Negative) Urine Bilirubin (Negative) Urine Urobilinogen (<2.0) mg/dL Ur Leukocyte Esterase (Negative) Urine WBC (Auto) (0.0-6.0) /HPF Urine RBC (Auto) (0.0-6.0) /HPF U Epithel Cells (Auto) (0-13.0) /HPF Hyaline Casts /LPF Urine Mucus /HPF labs noted trop neg INR therapeutic Cr Normal BNP 3000 pt took his home meds including DM meds just prior to arrival will not give him insulin now so not to cause hypoglycemia chest xray not overly impressive for pulmonary edema lasix 20 mg IV given initial response poor walk test on 2L NC sat99 pt still appears dyspnic and tachypnic on exam will CT pt to ro PE CT noted pt has had additional urine output and reports feeling better walk test now on room air sat 99 long discussion with pt about his use of lasix will dc home with rx for the lasix pt will follow up with [facility] he has been instructed to weigh daily- as [facility] has instructed and take lasix accordingly K 4.4 today pt also instructed on eating high K foods david when taking lasix. Vital Signs 12/20/18 12/20/18 08:16 12:25 Temperature 97.8 F Pulse Rate 88 78 Respiratory 20 20 Rate Blood Pressure 136/91 Blood Pressure 132/92 [Right] O2 Sat by Pulse 99 100 Oximetry pt dc home with family pt understands his discharge plan ambulatory on discharge without complaints. - Differential Diagnosis RO ACS/ROCHF/RO PE Critical care attestation.: If time is entered above; I have spent that time in minutes in the direct care of this critically ill patient, excluding procedure time. ED Disposition Clinical Impression: CHF (congestive heart failure), Diabetes, Hyperglycemia, Anticoagulated on Coumadin, Nonadherence to medication, Medication refill Disposition: DC-01 TO HOME OR SELFCARE Is pt being admited?: No Does the pt Need Aspirin: No Condition: Stable Instructions: Heart Failure (ED) Additional Instructions: CONTINUE HOME COUMADIN, METOPROLOL, METFORMIN, SPIRALADACTONE RESUME HOME LASIX FOLLOW UP WITH [facility] CALL FOR APPNT IN PURPLE POD FOR NEXT WEEK TO BE SURE YOUR BNP IS IMPROVING AND LASIX IS HELPING CARDIAC DIABETIC DIET ACTIVITY TOLERATED EAT FOODS HIGH IN POTASSIUM EACH DAY BANANAS AND ORANGES Prescriptions: Furosemide [Lasix TAB] 40 mg PO BID PRN #60 tablet PRN Reason: Shortness Of Breath Referrals: KACIE ARMANDO MD [Primary Care Provider] - 3-5 Days [facility] [Outside] - 3-5 Days Time of Disposition: 11:43
[2018-12-20 08:47] LABS: Basophils # (Auto) 0.1 K/mm3 (0.0-0.1); Basophils % (Auto) 1.4 % (0.0-1.8); Eosinophils % (Auto) 0.2 % (0.0-4.3); Hematocrit 36.4 % (35.5-45.6); Hemoglobin 12.3 gm/dl (11.8-15.2); Lymphocytes # (Auto) 1.8 K/mm3 (1.2-5.4); Lymphocytes % (Auto) 26.4 % (13.4-35.0); Mean Corpuscular HGB Conc 34 % (32-34); Mean Corpuscular Volume 93 fl (84-94); Monocytes # (Auto) 0.5 K/mm3 (0.0-0.8); Monocytes % (Auto) 7.2 % (0.0-7.3); Platelet Count 181 K/mm3 (140-440); Red Blood Count 3.92 M/mm3 (3.65-5.03); Red Cell Distribution Width 16.5 % (13.2-15.2)
[2018-12-20 08:59] LABS: INR 2.69 (0.87-1.13)
[2018-12-20 09:16] LABS: Alanine Aminotransferase 32 units/L (7-56); Albumin 4.1 g/dL (3.9-5); BUN/Creatinine Ratio 21; Blood Urea Nitrogen 15 mg/dL (9-20); Calcium 9.3 mg/dL (8.4-10.2); Hemolysis Index 2
[2018-12-20 09:30] LABS: Bilirubin,Urine NEG (Negative); Blood,Urine SM (Negative); Hyaline Casts,Urine 3 /LPF; Mucus,Urine FEW /HPF
[2018-12-20 09:38] LABS: Color,Urine Yellow (Yellow)
--- NOTE | 2018-12-20 10:05 | XRay Report ---
Chest 2 views: History: Shortness of breath. Findings: Cardiomegaly. Trachea is midline. No consolidation, pneumothorax or pleural effusion. Impression: No acute cardiopulmonary findings.
--- NOTE | 2018-12-20 11:40 | Cat Scan Report ---
CTA chest: History: Shortness of breath. Findings: No evidence of pulmonary embolism. No mediastinal mass. Minimal bilateral pleural effusion. No pericardial effusion. Normal lung parenchyma. No discrete nodularity or consolidation. Impression: No evidence of pulmonary embolism. Minimal bilateral pleural effusion. The
[2018-12-20 12:26] VITALS: BP 132/92
== END 2018-12-20 12:25 | disposition home or self-care (01) ==
LOC: ED 08:02
DX: I50.9 Heart failure, unspecified (principal); E11.65 Type 2 diabetes mellitus with hyperglycemia; Z79.01 Long term (current) use of anticoagulants
CPT/HCPCS: 36415; 71046; 71275; 80053; 81001; 82962; 83690; 83880; 84484; 85025; 85610; 93005; 93010; 96374; 99285; J1940; Q9967